=== PATIENT | male | born 1990 | race Caucasian/White ===

== ENCOUNTER 2020-08-26 15:20 | Emergency (ER) | payer MEDICAID, OTHER ==
[~2020-08-26] VITALS: Ht 180.3 cm; Wt 78.0 kg
[~2020-08-26 15:20] MED LIST: CLOZ100T PO; DIVA500T17 PO; ISOPTO ATROPINE; LEVO125T5 PO; LEVO25TA4 PO; OLAN5TAB9 PO; PRAZ1CAP2 PO
[2020-08-26] MEDS ORDERED: SODIUM CHLORIDE 0.9% 1,000ML IVBOLUS ONE (16:00)
[2020-08-26] MEDS ORDERED: MAGNESIUM CITRATE 300ML ORAL SOL PO ONE (16:00)
[2020-08-26 16:09] LABS: BASOPHILS % (AUTO) 1 % (0-1); EOSINOPHILS % (AUTO) 1 % (1-7); LYMPHOCYTES % (AUTO) 36 % (22-44); MEAN CORPUSCULAR HEMOGLOBIN 31.6 pg (27.5-34.5); MEAN CORPUSCULAR HGB CONC 33.7 g/dL (33.2-36.2); MEAN PLATELET VOLUME 10.1 fL (7.4-10.4); MONOCYTES % (AUTO) 6 % (2-9); NEUTROPHILS % (AUTO) 57 % (42-75); PLATELET COUNT 155 x10^3/uL (130-400); RED BLOOD COUNT 4.79 x10^6/uL (4.38-5.82); RED CELL DISTRIBUTION WIDTH 13.9 % (9.4-14.8)
[2020-08-26 16:10] LABS: MD NO
[2020-08-26 16:17] LABS: ALANINE AMINOTRANSFERASE 41 U/L (12-78); ALBUMIN 3.7 g/dL (3.4-5.0); ANION GAP 6 mmol/L (5-15); CALCIUM 8.4 mg/dL (8.5-10.1); CHLORIDE 110 mmol/L (98-107); CREATININE 0.91 mg/dL (0.7-1.3)
[2020-08-26 16:19] LABS: ALKALINE PHOSPHATASE 87 U/L (45-117); BILIRUBIN,TOTAL 0.2 mg/dL (0.2-1.0); TOTAL PROTEIN 7.1 g/dL (6.4-8.2)
[2020-08-26] MEDS ORDERED: MAGNESIUM CITRATE 300ML ORAL SOL ONE (16:56)
--- NOTE | 2020-08-26 17:08 | NUR ---
PT BACK FROM IMAGING, COMPLAINING OF HEADACHE, ABLE TO DRINK ENTIRE 300ML BOTTLE OF MAG CITRATE, STATES HE LIKED THE TASTER. PT OFF MONITOR AND WITH BED RAIL DOWN FOR EASE OF GETTING UP TO USE THE BATHROOM. PT CONTINUES TO BE VERY INTERNALLY STIMULATED, COMPLAINING OF VISUAL HALLUCINATIONS AND VOICES THAT ARENT REAL, DENIES COMMAND HALLUCINATIONS OR URGE TO HARM SELF OR OTHERS. PT PLEASANT AND COOPERATIVE, VERBALIZES APPRECIATION FOR CARES AND CONCERN.
--- NOTE | 2020-08-26 17:34 | NUR ---
THIS RN SPOKE WITH GRANT, G[employer] MANAGER OF [employer] AT WHICH PT RESIDES, AND WITH PT PERMISSION INFORMED HIM WITH UPDATES IN PTS PLAN OF CARE. GRANT STATES HE CAN COME EXHIBITS MANAGER PT, STATES THAT BOWEL PREP PROBABLY THE BEST OPTION FOR PT TO USE WITH THE AMOUNT OF SUPERVISION AVAILABLE AT HOME. PT ALSO AWARE AND AGREEABLE WITH PLAN OF CARE.
[2020-08-26 18:06] VITALS: BP 135/76
== END 2020-08-26 18:14 | disposition home or self-care (01) ==
LOC: ED 17:03
DX: K59.00 Constipation, unspecified (principal); R10.84 Generalized abdominal pain; R42 Dizziness and giddiness
CPT/HCPCS: 36415; 74021; 80053; 83690; 85025; 93005; 96360; 99285; J7030

== ENCOUNTER 2020-12-10 15:40 | Emergency (ER) | payer MEDICAID ==
[~2020-12-10] VITALS: Ht 175.3 cm; Wt 69.0 kg
[~2020-12-10 15:40] MED LIST changes: +OLAN5TAB69 PO; -OLAN5TAB9 PO
[2020-12-10] MEDS ORDERED: SODIUM CHLORIDE FLUSH 10ML SYR IVF ONE (16:00)
[2020-12-10] MEDS ORDERED: SODIUM CHLORIDE 0.9% 1,000ML IVBOLUS ONE (16:00)
[2020-12-10 16:24] LABS: BASOPHILS % (AUTO) 1 % (0-1); EOSINOPHILS % (AUTO) 3 % (1-7); LYMPHOCYTES % (AUTO) 33 % (22-44); MEAN CORPUSCULAR HEMOGLOBIN 32.7 pg (27.5-34.5); MEAN CORPUSCULAR HGB CONC 34.2 g/dL (33.2-36.2); MEAN PLATELET VOLUME 10.4 fL (7.4-10.4); MONOCYTES % (AUTO) 7 % (2-9); NEUTROPHILS % (AUTO) 57 % (42-75); PLATELET COUNT 168 x10^3/uL (130-400); RED BLOOD COUNT 4.68 x10^6/uL (4.38-5.82); RED CELL DISTRIBUTION WIDTH 12.8 % (9.4-14.8)
--- NOTE | 2020-12-10 16:28 | NUR ---
PT RESTING IN BED, NO DISTRESS. STATES "I'M FEELING BETTER ALREADY." PT REMAINS ON MONITORS, VSS. CONT TO MONITOR.
[2020-12-10 16:36] LABS: ALBUMIN 3.8 g/dL (3.4-5.0); ANION GAP 5 mmol/L (5-15); CALCIUM 8.6 mg/dL (8.5-10.1); CHLORIDE 109 mmol/L (98-107)
[2020-12-10 16:39] LABS: ALANINE AMINOTRANSFERASE 28 U/L (12-78); ALKALINE PHOSPHATASE 101 U/L (45-117); BILIRUBIN,TOTAL 0.3 mg/dL (0.2-1.0); CREATININE 0.93 mg/dL (0.7-1.3)
[2020-12-10 17:17] LABS: MICROSCOPIC AUTO
[2020-12-10 17:23] LABS: AMPHETAMINE SCREEN, URINE Negative (Negative); BARBITURATE SCREEN, URINE Negative (Negative); BENZODIAZEPINE SCREEN, URINE Negative (Negative); CANNABINOID SCREEN, URINE Negative (Negative); COCAINE SCREEN, URINE Negative (Negative); METHADONE SCREEN, URINE Negative (Negative); OPIATE SCREEN, URINE Negative (Negative)
--- NOTE | 2020-12-10 17:29 | NUR ---
PT RESTING IN BED, TOOK SELF OF MONITORS. PT UP TO VOID, STEADY GAIT. PT DENIES NEEDS, STATES "I'M FEELING GOOD NOW." NO DISTRESS, CONT TO MONITOR.
--- NOTE | 2020-12-10 18:27 | NUR ---
PT D/C'D PER ORDERS. SPOKE WITH GRANT, PT'S CARE GTIVER AT [facility], WILL BE THERE IN 5 MINUTES TO PICK PT UP, PT AWARE. PT HAS ALL OWN BELONGINGS UPON D/C.
[2020-12-10 18:28] VITALS: BP 128/86
== END 2020-12-10 18:29 | disposition home or self-care (01) ==
LOC: ED 16:10
DX: R55 Syncope and collapse (principal); R11.2 Nausea with vomiting, unspecified; R53.1 Weakness; E03.9 Hypothyroidism, unspecified; F17.200 Nicotine dependence, unspecified, uncomplicated
CPT/HCPCS: 36415; 80053; 80307; 81001; 85025; 85379; 87086; 93005; 96360; 96361; 99284; J7030

== ENCOUNTER 2020-12-28 19:45 | Inpatient (IN) | payer MEDICAID ==
[~2020-12-28] VITALS: Ht 175.3 cm; Wt 78.4 kg
[2020-12-28 20:00] VITALS: BP 125/88
[2020-12-28] MEDS ORDERED: ACETAMINOPHEN 325 MG TABLET PO PRN (20:30)
[2020-12-28] MEDS ORDERED: IBUPROFEN 200 MG TABLET PO PRN (22:00)
[2020-12-28 22:08] VITALS: BP 125/88
[2020-12-28] MEDS ORDERED: PLEASE ENTER HEIGHT AND WEIGHT MC SCH (22:30)
[2020-12-28] MEDS: DIVALPROEX 500 MG TAB.ER.24H PO SCH (22:52)
[2020-12-28] MEDS: DESMOPRESSIN 0.2 MG TABLET PO SCH (22:52)
[2020-12-29 06:07] LABS: BASOPHILS % (AUTO) 1 % (0-1); EOSINOPHILS % (AUTO) 2 % (1-7); LYMPHOCYTES % (AUTO) 40 % (22-44); MEAN CORPUSCULAR HEMOGLOBIN 32.4 pg (27.5-34.5); MEAN CORPUSCULAR HGB CONC 34.1 g/dL (33.2-36.2); MONOCYTES % (AUTO) 7 % (2-9); NEUTROPHILS % (AUTO) 51 % (42-75); PLATELET COUNT 190 x10^3/uL (130-400); RED BLOOD COUNT 5.11 x10^6/uL (4.38-5.82)
[2020-12-29] MEDS: LEVOTHYROXINE 125 MCG TABLET PO SCH (06:14)
[2020-12-29 06:21] LABS: ALBUMIN 3.9 g/dL (3.4-5.0); ANION GAP 5 mmol/L (5-15); CALCIUM 9.6 mg/dL (8.5-10.1); CHLORIDE 109 mmol/L (98-107)
[2020-12-29 06:46] LABS: ALANINE AMINOTRANSFERASE 32 U/L (12-78); ALKALINE PHOSPHATASE 102 U/L (45-117); BILIRUBIN,TOTAL 0.5 mg/dL (0.2-1.0); CHOL/HDL RATIO 3.7; CHOLESTEROL, TOTAL 179 mg/dL (140-239); CREATININE 1.03 mg/dL (0.7-1.3); FREE T4 (FREE THYROXINE) 1.13 ng/dL (0.76-1.46); HDL CHOL % 27 % (26-37); HDL CHOLESTEROL (DIRECT) 49 mg/dL (40-60); LDL CHOLESTEROL,CALCULATED 104 mg/dL (54-169); LDL/HDL RATIO 2.1 (0.5-3.0); TOTAL PROTEIN 7.6 g/dL (6.4-8.2); TRIGLYCERIDES 132 mg/dL (50-200); VLDL CHOLESTEROL 26 mg/dL (0-25)
[2020-12-29 08:17] VITALS: BP 117/81
[2020-12-29] MEDS: OLANZAPINE 10 MG TABLET PO SCH ×2 (08:23→20:32)
[2020-12-29] MEDS: QUETIAPINE 25MG TABLET PO PRN ×3 (08:24→20:32)
[2020-12-29] MEDS ORDERED: ONDANSETRON ODT 4 MG ONE (09:40)
[2020-12-29 10:00] VITALS: BP 119/87
[2020-12-29] MEDS ORDERED: ONDANSETRON ODT 4 MG PO PRN (10:00)
[2020-12-29] MEDS ORDERED: SODIUM CHLORIDE 0.9% 1,000 ML IV ONE (10:30)
[2020-12-29 12:00] VITALS: BP 114/81
[2020-12-29 15:18] LABS: MICROSCOPIC NOT IND
[2020-12-29] MEDS ORDERED: NICOTINE 14MG/24 HR PATCH.TD24 TD ONE (16:00)
[2020-12-29] MEDS ORDERED: NICOTINE 14MG/24 HR PATCH.TD24 ONE (16:02)
[2020-12-29] MEDS ORDERED: LORazepam 1MG TABLET ONE (17:36)
[2020-12-29] MEDS ORDERED: QUETIAPINE 100MG TABLET PO ONE (18:00)
[2020-12-29] MEDS ORDERED: LORazepam 1MG TABLET PO ONE (18:00)
[2020-12-29 19:48] VITALS: BP 117/83
[2020-12-29] MEDS: DIVALPROEX 500 MG TAB.ER.24H PO SCH (20:31)
[2020-12-29] MEDS: DESMOPRESSIN 0.2 MG TABLET PO SCH (20:32)
[2020-12-30] MEDS: LEVOTHYROXINE 125 MCG TABLET PO SCH (06:16)
[2020-12-30] MEDS: OLANZAPINE 10 MG TABLET PO SCH ×2 (09:22→20:24)
[2020-12-30] MEDS: NICOTINE 14MG/24 HR PATCH.TD24 TD SCH (09:23)
[2020-12-30] MEDS: QUETIAPINE 25MG TABLET PO PRN ×2 (09:23→16:40)
[2020-12-30 09:25] VITALS: BP 119/86
[2020-12-30] MEDS: LORazepam 1MG TABLET PO PRN (11:18)
[2020-12-30 19:27] VITALS: BP 121/86
[2020-12-30] MEDS: DESMOPRESSIN 0.2 MG TABLET PO SCH (20:24)
[2020-12-30] MEDS: DIVALPROEX 500 MG TAB.ER.24H PO SCH (20:24)
[2020-12-30] MEDS: CLOZARIL 200 MG HOMEMEDPO SCH (20:25)
[2020-12-31] MEDS: LEVOTHYROXINE 125 MCG TABLET PO SCH (05:45)
[2020-12-31 07:32] VITALS: BP 125/87
[2020-12-31] MEDS: NICOTINE 14MG/24 HR PATCH.TD24 TD SCH (08:51)
[2020-12-31] MEDS: OLANZAPINE 10 MG TABLET PO SCH (08:54)
[2020-12-31] MEDS: CLOZARIL 200 MG HOMEMEDPO SCH ×2 (08:55→20:21)
[2020-12-31] MEDS ORDERED: POLYETHYLENE GLYCOL 17 GM PACKET PO PRN (13:00)
[2020-12-31] MEDS ORDERED: BISACODYL 10 MG SUPP PR PRN (13:00)
[2020-12-31] MEDS: DOCUSATE 100 MG CAPSULE PO PRN (15:50)
[2020-12-31 19:25] VITALS: BP 125/86
[2020-12-31] MEDS: DESMOPRESSIN 0.2 MG TABLET PO SCH (20:22)
[2020-12-31] MEDS: DIVALPROEX 500 MG TAB.ER.24H PO SCH (20:22)
[2020-12-31] MEDS: LORazepam 1MG TABLET PO PRN (20:22)
[2021-01-01] MEDS: LEVOTHYROXINE 125 MCG TABLET PO SCH (06:17)
[2021-01-01 07:29] VITALS: BP 111/76
[2021-01-01] MEDS: CLOZARIL 200 MG HOMEMEDPO SCH ×2 (09:00→21:04)
[2021-01-01] MEDS: NICOTINE 14MG/24 HR PATCH.TD24 TD SCH (09:21)
[2021-01-01] MEDS: DOCUSATE 100 MG CAPSULE PO PRN (09:21)
[2021-01-01] MEDS: LORazepam 1MG TABLET PO PRN (12:57)
[2021-01-01] MEDS ORDERED: LURASIDONE 20 MG TABLET PO ONE (17:00)
[2021-01-01 19:29] VITALS: BP 126/85
[2021-01-01] MEDS: DESMOPRESSIN 0.2 MG TABLET PO SCH (21:04)
[2021-01-01] MEDS: DIVALPROEX 500 MG TAB.ER.24H PO SCH (21:04)
[2021-01-02] MEDS: LEVOTHYROXINE 125 MCG TABLET PO SCH (06:14)
[2021-01-02 07:45] VITALS: BP 109/77
[2021-01-02] MEDS ORDERED: BISACODYL 10 MG SUPP PR PRN (08:00)
[2021-01-02] MEDS ORDERED: LACTULOSE 20 GM/30 ML UDC PO PRN (08:00)
[2021-01-02] MEDS: NICOTINE 14MG/24 HR PATCH.TD24 TD SCH (09:54)
[2021-01-02] MEDS: DOCUSATE 100 MG CAPSULE PO SCH (09:54)
[2021-01-02] MEDS: CLOZAPINE 200 MG HOMEMEDPO SCH ×2 (10:00→20:25)
[2021-01-02] MEDS ORDERED: DESM0.2T5 PO (14:24)
[2021-01-02] MEDS ORDERED: CLOZAPINE 200 MG HOMEMEDPO (14:24)
[2021-01-02] MEDS ORDERED: NICO-486 TD (14:24)
[2021-01-02 19:36] VITALS: BP 127/88
[2021-01-02] MEDS: DESMOPRESSIN 0.2 MG TABLET PO SCH (20:24)
[2021-01-02] MEDS: LORazepam 1MG TABLET PO PRN (20:24)
[2021-01-02] MEDS: DIVALPROEX 500 MG TAB.ER.24H PO SCH (20:24)
[2021-01-02] MEDS ORDERED: SENNA/DOCUSATE TABLET PO SCH (21:00)
[2021-01-03] MEDS: LEVOTHYROXINE 125 MCG TABLET PO SCH (05:54)
[2021-01-03 07:25] VITALS: BP 107/76
[2021-01-03] MEDS: CLOZAPINE 200 MG HOMEMEDPO SCH (08:44)
[2021-01-03] MEDS: DOCUSATE 100 MG CAPSULE PO SCH (08:44)
[2021-01-03] MEDS: NICOTINE 14MG/24 HR PATCH.TD24 TD SCH (08:45)
== END 2021-01-03 11:05 | disposition home or self-care (01) | DRG 885 ==
LOC: 3E 20:11
PROVIDERS: ADMIT Psychiatry & Neurology Psychosomatic Medicine; ATTEND Psychiatry & Neurology Psychosomatic Medicine
DX: F20.0 Paranoid schizophrenia (principal); F17.200 Nicotine dependence, unspecified, uncomplicated; F43.10 Post-traumatic stress disorder, unspecified; R32 Unspecified urinary incontinence; E03.9 Hypothyroidism, unspecified; Z79.890 Hormone replacement therapy; Z79.899 Other long term (current) drug therapy
CPT/HCPCS: 36415; 71045; 80053; 80061; 81003; 82607; 84439; 84443; 85025; 93005; Q0162; J7030